=== PATIENT | male | born 1945 | race Caucasian/White ===

== ENCOUNTER → 2020-10-17 12:52 | Oncology outpatient (ONC) | payer OTHER, SELFPAY ==
[2020-10-17 12:42] VITALS: BP 127/75; PULSE 47; RESP 16; TEMP 35.9; O2SAT 98
--- NOTE | 2020-10-17 12:48 | ONC.CONS ---
History of Present Illness - Data of Consult Primary Care Provider: Al Paulino MD - Consult Narrative Narrative: Tomy Orlando is a 75 year old male who is referred for further evaluation of a rising PSA post prostatectomy. In 2003 he underwent a prostatectomy that showed a [place] 3 + 4 tumor that was node negative. His PSA subsequently became undetectable. His chart mentions he had a PSA of 0.4 although there is no date associated with this. In June 09, 2020 is PSA was 32.1. September 14, 2020 his PSA was 3.0. In August of 2020 he had an episode of gross hematuria and was seen by urology at [facility]. A bladder cystoscopy showed drip bladder trabeculations but no evidence of cancer. CT KUB showed a right kidney cyst but no lymphadenopathy or bone lesions. He is now referred for medical oncology consultation. From his perspective is generally feeling good. He has not had problems with pain, bleeding, localized weakness, fever, chills, nausea, vomiting, cough or shortness of breath. All other systems are negative. Past medical history 1. His mother had breast cancer in her 70s. His brother had prostate cancer in 2002. 2. 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 He is is alone in the office today. He is a never smoker and occasional drinker. He is active and plays golf on a regular basis. He eats a good diet. 3. Previous surgeries include his prostatectomy and arthroscopic knee surgery 4. History of atrial fibrillation for which she is on Pradaxa. 5. History of borderline hyperlipidemia, never treated 6. History of asthma 7. He denies high blood pressure, diabetes, rheumatic fever, tuberculosis, heart attacks, strokes, stomach ulcers or pneumonia. He has not had any other kind of cancer 8. No known drug allergies 9. Current medications include as needed Flonase nose spray, Pradaxa 150 mg twice a day, as needed albuterol inhaler, montelukast 10 mg daily, Cardizem 240 mg daily, metoprolol 100 mg twice a day and lisinopril 5 mg daily. CC: Demetrius Sharma MD Home Medications and Allergies Home Medications Medication Instructions Recorded Confirmed Type benzonatate 100 mg PO PRN 10/17/20 History dabigatran etexilate [Pradaxa] 150 mg PO BID 10/17/20 10/17/20 History diltiazem HCl [Diltia XT] 240 mg PO DAILY 10/17/20 10/17/20 History lisinopril 5 mg PO DAILY 10/17/20 10/17/20 History metoprolol tartrate 100 mg PO BID 10/17/20 10/17/20 History montelukast [Singulair] 10 mg PO DAILY 10/17/20 10/17/20 History vitamin A-vitamin C-vit E-min 1 tab PO DAILY 10/17/20 10/17/20 History [Ocuvite] Allergies Allergy/AdvReac Type Severity Reaction Status Date / Time INGREDIENT: NDA - NO KNOWN Allergy Unknown Uncoded 03/04/18 13:09 DRUG ALLERGIES Review of Systems - Patient Self-Reported Symptoms SR eye issues: Vision changes SR ears, nose, mouth, throat issues: Ears ringing, Congestion, Cough, Difficulty swallowing SR respiratory issues: Mucous Exam Vital signs: Vital Signs Temp Pulse Resp BP Pulse Ox 10/17/20 12:42 96.6 F L 47 L 16 127/75 98 Intake and Output 10/16/20 10/17/20 10/17/20 23:59 07:59 15:59 Other: Weight 112.1 kg Patient Weight 10/17/20 23:59 Weight 112.1 kg Narrative: He was awake alert oriented x3. Was fully ambulatory in no acute distress. Assessment and Plan (1) Prostate cancer Status: Acute Mr. Orlando has a history of prostatectomy 16 years ago for cancer and a rising PSA of 2.1 in May, 3.0 in August. He is asymptomatic. He has a fit geriatric status and is quite active. He will have a repeat PSA done today along with a CBC and metabolic panel. Assuming this shows that his PSA remains in the detectable range, a referral to Radiation Oncology at [facility] in [place] will be made. We discussed the fact that salvage radiation after prostatectomy can be associated with long-term progression-free survival in a significant percentage of patients. Potential toxicities of radiation can include fatigue and irritation of normal tissues in the past with a BMP this could lead to radiation induced irritation of the bowel or bladder. He could also affect continence and erectile function. Given his fit geriatric status and likely survival of more than 10 years, he would be an appropriate candidate for this modality. Labs will be obtained today for blood count, chemistry panel and PSA. Referral will be made to Radiation Oncology. I explained we sometimes give androgen deprivation therapy in conjunction with radiation therapy. However, the main benefit from intervention would be the radiation. Accordingly, will leave it open-ended at this facility. I would be happy to see him again at a time but could be of assistance in his care will but no specific return appointment will be scheduled to this office. Impression 1. Prostatectomy 2003 with undetectable PSA postoperatively per patient history 2. Rising PSA of 2.1 in May of 2020, 3.0 in August of [address] [facility] shows no evidence of lymphadenopathy or bone lesions 4. Fit geriatric status with expected survival and excessive 10 years 5. Atrial fibrillation but no other history of cardiovascular disease Recommendations 1. Recheck labs of PSA, CBC and CMP 2. Referral to Radiation Oncology at [facility] for rising PSA postprostatectomy 3. Although no specific return appointment has been scheduled to this office, be happy to see him again in time in the future if I could be of assistance in his care. I personally spent 33 minutes in today's [id number] visit with greater than 50% of the time spent in counseling regarding the issues outlined above.
[2020-10-17 13:36] LABS: Add Manual Diff / Slide Review NO; Basophils Absolute Auto 0 /uL (0-100); Basophils Percent Auto 0.6 % (0-2); Eosinophils Absolute Auto 100 /uL (0-450); Eosinophils Percent Auto 1.9 % (2-4); Lymphocytes Absolute Auto 1600 /uL (1100-4500); Lymphocytes Percent Auto 22.1 % (25-40); Mean Corpuscular HGB Conc 33.3 % (30-36); Mean Corpuscular Hemoglobin 31.1 PG (26-34); Mean Corpuscular Volume 93.3 fL (80-100); Monocytes Absolute Auto 900 /uL (0-900); Monocytes Percent Auto 12.6 % (3-14); Neutrophils Absolute Auto 4500 /uL (1500-7000); Neutrophils Percent Auto 62.8 % (50-75); Platelet Count 227 X10^3/uL (150-400); Red Blood Cell Count 4.18 X10^6/uL (4.5-5.9); Red Cell Distribution Width 12.7 % (11.6-14.8); White Blood Cell Count 7.2 X10^3/uL (4.5-11.0)
[2020-10-17 13:50] LABS: Alanine Aminotransferase 23 IU/L (<50); Albumin 4.1 g/dL (3.5-5.0); Albumin Globulin Ratio 1.5 (1.0-2.8); Alkaline Phosphatase 79 U/L (38-126); Aspartate Aminotransferase 44 IU/L (17-59); BUN Creatinine Ratio 25.7 (6-22); Bilirubin Total 0.6 mg/dL (0.2-1.3); Blood Urea Nitrogen 27 mg/dL (9-20); Calcium 8.8 mg/dL (8.4-10.2); Carbon Dioxide 27 mmol/L (22-32); Chloride 104 mmol/L (98-107); Estimated Glomerular Filt Rate > 60.0 mL/min (>60); Globulin 2.8 g/dL (1.7-4.1); Glucose 96 mg/dL (80-110); HEMOLYSIS 17 (0-50); Potassium 4.6 mmol/L (3.4-5.1); Sodium 136 mmol/L (137-145); Total Protein 6.9 g/dL (6.3-8.2)
--- NOTE | 2020-11-03 14:30 | ONC.SCHED ---
Sent referral for Radiation Oncology on 10/23/2020. Per Julianna, patient is scheduled for consult on November 27, 2020.
== END ==
PROVIDERS: PCP Family Medicine; Referring Provider Urology; Visit Provider Internal Medicine
DX: C61 Malignant neoplasm of prostate (principal); R97.21 Rising PSA following treatment for malignant neoplasm of prostate; I48.91 Unspecified atrial fibrillation; Z79.01 Long term (current) use of anticoagulants
CPT/HCPCS: 36415; 80053; 84153; 85025; 99203; 99213